=== PATIENT | female | born 1950 | race Caucasian/White ===

== ENCOUNTER → 2019-06-25 18:59 | Outpatient (ROUT) | payer MEDICARE, OTHER, SELFPAY ==
[2019-06-25 19:23] LABS: Aspartate Aminotransferase 31 IU/L (14-36); BUN Creatinine Ratio 18.8 (6-22); Blood Urea Nitrogen 15 mg/dL (7-17); Calcium 10.2 mg/dL (8.4-10.2); Carbon Dioxide 29 mmol/L (22-32); Chloride 99 mmol/L (98-107); Cholesterol 215 mg/dL (140-199); Estimated Glomerular Filt Rate > 60.0 mL/min (>60); Glucose 114 mg/dL (80-110); HDL Cholesterol 93 mg/dL (40-60); HEMOLYSIS < 15 (0-50); LDL Cholesterol Calculated 99 mg/dL (<100); Sodium 140 mmol/L (137-145); Triglycerides 113 mg/dL (35-150)
[2019-06-25 19:51] LABS: TSH w/ Reflex to FT4 0.61 uIU/mL (0.47-4.68)
== END ==
PROVIDERS: Family Provider Internal Medicine; PCP Internal Medicine; Visit Provider Internal Medicine
DX: E78.2 Mixed hyperlipidemia (principal); I10 Essential (primary) hypertension
CPT/HCPCS: 80048; 80061; 84443; 84450

== ENCOUNTER → 2020-07-06 19:15 | Outpatient (ROUT) | payer MEDICARE, OTHER, SELFPAY ==
[2020-07-06 19:58] LABS: Aspartate Aminotransferase 35 IU/L (14-36); Blood Urea Nitrogen 12 mg/dL (7-17); Calcium 9.7 mg/dL (8.4-10.2); Carbon Dioxide 31 mmol/L (22-32); Chloride 99 mmol/L (98-107); Cholesterol 208 mg/dL (140-199); Estimated Glomerular Filt Rate > 60.0 mL/min (>60); Glucose 91 mg/dL (80-110); HDL Cholesterol 79 mg/dL (40-60); HEMOLYSIS < 15 (0-50); LDL Cholesterol Calculated 102 mg/dL (<100); Sodium 137 mmol/L (137-145); Triglycerides 134 mg/dL (35-150)
== END ==
PROVIDERS: Family Provider Internal Medicine; PCP Internal Medicine; Visit Provider Internal Medicine
DX: E78.2 Mixed hyperlipidemia (principal); I10 Essential (primary) hypertension
CPT/HCPCS: 80048; 80061; 84450

== ENCOUNTER → 2021-06-06 10:42 | Outpatient (CLI) | payer MEDICARE, SELFPAY ==
--- NOTE | 2021-06-06 | DI.US.S_ITS ---
PROCEDURE: US PELVIC COMPLETE INDICATIONS: FAMILY HISTORY ENDOMETRIAL CANCER TECHNIQUE: Real-time scanning was performed of the pelvic organs, with image documentation. Additional endovaginal scanning was necessary due to incomplete visualization of the adnexal and endometrial structures by transabdominal scanning. COMPARISON: None. FINDINGS: Uterus: Uterus is normal in size at 6.0 x 3.2 x 4.2 cm. The endometrium measures 3 mm in combined thickness. Scant amount of fluid within the endometrial cavity. Ovaries: Right ovary is not visualized. There is a 3.0 x 2.4 x 2.6 cm left adnexal mass with mild internal vascularity. It appears solid. It is immediately adjacent to the lower uterine segment but appears to move away/separate from the uterus during real-time imaging. Other: No pathologic free abdominal or pelvic fluid. IMPRESSION: 1. Unremarkable appearance of the uterus. 2. A 3.0 x 2.4 x 2.6 cm left adnexal mass seen immediately adjacent to the lower uterine segment. This may represent the left ovary versus a left adnexal mass. Consider further characterization with pelvic MRI . 3. Right ovary not visualized. Dictated by: Isaiah Pratt M.D. on 06/06/2021 at 15:31 Approved by: Isaiah Pratt M.D. on 06/06/2021 at 15:36
== END ==
PROVIDERS: Family Provider Internal Medicine; PCP Internal Medicine; Referring Provider Internal Medicine; Visit Provider Internal Medicine
DX: R19.09 Other intra-abdominal and pelvic swelling, mass and lump (principal); Z80.49 Family history of malignant neoplasm of other genital organs
CPT/HCPCS: 76830; 76856

== ENCOUNTER → 2021-06-21 09:11 | Outpatient (CLI) | payer MEDICARE, SELFPAY ==
--- NOTE | 2021-06-21 | DI.MRI.S_ITS ---
PROCEDURE: MR PELVIS WO/W CON INDICATIONS: Other specified conditions associated with female gynecological organs. Family history of endometrial carcinoma, ultrasound identifies a possible left adnexal pelvic mass. TECHNIQUE: Coronal HASTE, sagittal breath-hold T2 FSE; axial T1 FSE with and without fat saturation through the pelvis. Optional long- and short-axis uterine nonbreath-hold T2 FSE through the uterus. Sagittal or axial dynamic VIBE during administration of contrast. Post-contrast axial or coronal VIBE/2-D FLASH with fat saturation from the iliac crests to the symphysis. Optional diffusion weighted imaging and ADC may be performed. COMPARISON: [facility], , US PELVIC COMPLETE, 06/06/2021, 10:57. FINDINGS: Image quality: Excellent. Uterus: Uterus is normal in size. Endometrium is normal in thickness. Junctional zone is normal in thickness at 12 mm or less. Adnexa: The right ovary is not identified, and was not identified on prior ultrasound scanning. The left ovary is relatively poorly identified as a discrete entity but there does appear to be a left ovarian structure at the broad ligament on the left, within immediate adjacent contiguous low T2 signal rounded mass measuring up to 2.3 x 2.9 by 2.5 cm. This mass has heterogeneous internal content best seen on postcontrast imaging, and the large majority of the mass enhances with several areas of possible cystic degeneration centrally. On the coronal T2 imaging, series 2, this mass appears to have a tissue plane it by peritoneal fat from the left lateral border of the anteverted uterus. The position adjacent to but separate from the uterine border argues strongly against a an exophytic subserosal fibroid as cause of this appearance. Rather, it is in very close proximity to what appears to be the left ovary and likely is ovarian in origin, solid, enhancing, and potentially malignant. Urinary system: Bladder wall is normal in thickness. Distal ureters are non distended. Urethra appears normal in morphology. Nodes and vessels: No pelvic or inguinal adenopathy by size criteria. Iliac vessels are normal in size. Bowel and peritoneum: No pathologic free pelvic fluid. Inferior colon and small bowel loops are normal in caliber. Soft tissues: No inguinal hernias. No findings of pelvic floor incompetence in the absence of provocation. Bones: Marrow demonstrates normal overall signal. IMPRESSION: Recommend gynecological surgical consultation for what appears to be a potentially malignant left ovarian mass at the margin of the broad ligament and separate from the left lateral border of the anteverted uterus. This mass shows heterogeneous internal enhancement, and an apparent tissue plane it from the uterine serosal border. The appearance is not typical of endometrioma. Throughout the remaining visualized peritoneal space no lesion is found. Dictated by: Onesimo Sosa M.D. on 06/21/2021 at 17:09 Approved by: Onesimo Sosa M.D. on 06/21/2021 at 17:23
== END ==
PROVIDERS: Family Provider Internal Medicine; PCP Internal Medicine; Referring Provider Internal Medicine; Visit Provider Internal Medicine
DX: N94.89 Other specified conditions associated with female genital organs and menstrual cycle (principal); Z80.49 Family history of malignant neoplasm of other genital organs
CPT/HCPCS: 72197

== ENCOUNTER → 2022-04-11 15:23 | Outpatient (CLI) | payer MEDICARE, SELFPAY ==
[2022-04-11 18:23] LABS: COVID19 -Nasal RAPID Negative (Negative)
== END ==
PROVIDERS: Family Provider Internal Medicine; PCP Internal Medicine; Visit Provider Surgery
DX: Z20.822 Contact with and (suspected) exposure to COVID-19 (principal); Z01.812 Encounter for preprocedural laboratory examination
CPT/HCPCS: 87635

== ENCOUNTER 2022-04-12 14:07 | Day surgery (SDC) | payer MEDICARE, SELFPAY ==
--- NOTE | 2022-04-12 | PATH_ITS ---
[facility] Accession Number: [id number] . 01 Material submitted: . PART A: cecum - CECAL POLYP PART B: sigmoid colon - SIGMOID POLYP . 01 Clinical history: . COLONOSCOPY ENCOUNTER FOR SCREENING FOR MALIGNANT NEOPLASM . 01 Diagnosis: A. Cecal Polyp: Tubular adenoma. . B. Sigmoid Polyp: Hyperplastic polyp. MRV 04/16/2022 0937 Local . 01 Electronically signed: . Sabra Toscano MD, Pathologist NPI- [id number] . 01 Gross description: . Part A: CECAL POLYP: Received in formalin is 1 fragment(s) of brody, soft tissue measuring 1.2 x 0.4 x 0.2 cm submitted entirely in 1 cassette(s) Part B: SIGMOID POLYP: Received in formalin is 1 fragment(s) of brody, soft tissue measuring 1.0 x 0.4 x 0.3 cm submitted entirely in 1 cassette(s) /BENIGNO 04/13/2022 2210 Local . 01 Pathologist provided ICD-10: Z12.11, K63.5 . 01 CPT . 032741, 990175 Performed at: 01 [facility] [address] [place] [id number] MD Aleksey Wolf MD Phone: [phone]
[2022-04-12 14:38] VITALS: BP 139/71; PULSE 57; RESP 16; TEMP 37; O2SAT 98
[2022-04-12 14:45] VITALS: BMI 23.8
--- NOTE | 2022-04-12 15:52 | PM.HP.1 ---
History of Present Illness History of Present Illness Date Patient Seen: 04/12/22 Time Patient Seen: 15:52 Chief complaint: COLONOSCOPY Narrative: Jyoti a 71-year-old woman who is here for colonoscopy. She believes her last colonoscopy was about 10 years ago and was normal. Patient History Surgical History History of Status post surgery (02/13/10) Family & Social History Family History Mother Hypertension Heart disease Gallstones Father Heart disease Diabetes mellitus Sister Cancer Gallstones Social History: household members spouse Tobacco & Substance use: Smoking Status Never smoker alcohol intake former Substance Use Type does not use Meds Home Medications and Allergies Home Medications Medication Instructions Recorded Confirmed Type rosuvastatin 10 mg tablet (Crestor) 10 mg PO QDAY ##0 08/08/12 04/12/22 History amitriptyline 25 mg tablet 25 mg PO DAILY 07/21/20 04/12/22 History omeprazole 20 mg capsule,delayed 20 mg PO DAILY 07/21/20 04/12/22 History release sodium,potassium,mag sulfates 17.5 See Rx Instructions PO .COMPLEX 03/05/22 Rx gram-3.13 gram-1.6 gram oral soln #354 mL (Suprep Bowel Prep Kit) amlodipine 5 mg tablet 5 mg PO DAILY 04/12/22 04/12/22 History Allergies Allergy/AdvReac Type Severity Reaction Status Date / Time From LIPITOR Allergy Mild HIVES Uncoded 04/12/22 14:55 SULFA Allergy Mild hives Uncoded 04/12/22 14:55 Exam Vital Signs (past 8 hours): - 04/12/22 14:38 Temperature 98.6 F Pulse Rate 57 L Respiratory Rate 16 Blood Pressure 139/71 Pulse Oximetry 98 Oxygen Delivery Method Room Air Oxygen Delivery Method Room Air Const General: healthy appearing Resp Effort & Inspection: normal respiratory effort GI Palpation: soft Assessment & Plan Assessment and plan (1) Colon cancer screening: Status: Acute Plan 71-year-old woman here for colon cancer screening. Reviewed risks and benefits of colonoscopy and she would like to proceed. COVID-19 COVID-19 status: Negative Result date/Date tested (Pos, Neg/Pending): 04/11/22 Time Spent With Patient Critical Care time: I spent a total of [] minutes of critical care time on this patient's care today; this time is exclusive of procedural time.
[2022-04-12] MEDS: fentaNYL 250 MCG/5 ML INJ 175 MCG IV (16:08)
[2022-04-12] MEDS: MIDAZOLAM 5 MG/5 ML VIAL 7 MG IV (16:08)
--- NOTE | 2022-04-12 16:23 | P.OP.COLON_ITS ---
Operative Date/Time/Diagnoses Date of procedure: 04/12/22 Time of procedure: 16:23 Pre-op diagnosis: Colon cancer screening Post-op diagnosis: same Procedure & Clinicians Surgeon: Dion Toscano Procedure Notes Procedure in detail: Surgeon: Dion Toscano MD Procedure: The patient was brought to the endoscopy suite, placed in left lateral decubitus position. The patient was connected to monitoring devices. A time-out was performed. Sedation was administered. Once the patient was adequately sedated, a digital rectal exam was performed and was normal. The sc ope was then inserted and advanced to the cecum where the appendiceal orifice was identified and photographed. The scope was then slowly withdrawn over greater than 6 minutes. The mucosa was thoroughly inspected. There was a 5 mm polyp the cecum removed with cold snare. There was a 5 mm polyp in the sigmoid colon removed with cold snare. The scope was retroflexed in the rectum. No abnormalities were noted. The scope was straightened and removed. The patient was awakened and brought to recovery. Versed: 7 mg Fentanyl: 175 mcg EBL: 5 mL Findings: 5 mm polyp in the cecum and 5 mm polyp in the descending colon Scope withdrawal time: 10 Sedation minutes: 19 Post-procedure Recommendations: Will call with biopsy results Disposition: PACU
[2022-04-12 16:35] VITALS: BP 142/72; PULSE 57; RESP 16; TEMP 36.5; O2SAT 97
== END 2022-04-12 17:02 | disposition home or self-care (01) ==
PROVIDERS: Family Provider Internal Medicine; PCP Internal Medicine; Referring Provider Surgery; Visit Provider Surgery
PROC: 0DJD8ZZ Inspection of Lower Intestinal Tract, Via Natural or Artificial Opening Endoscopic (ICD-10-PCS; CPT 45378; principal; 2022-04-12 15:30)
DX: Z12.11 Encounter for screening for malignant neoplasm of colon (principal); D12.0 Benign neoplasm of cecum
CPT/HCPCS: 45385; 99152; J2250; J3010

== ENCOUNTER → 2022-11-07 10:17 | Outpatient (CLI) | payer MEDICARE, OTHER, SELFPAY ==
[2022-11-07 11:50] LABS: Hematocrit 41.9 % (36-46); Hemoglobin 13.9 g/dL (12.0-16.0); Mean Corpuscular HGB Conc 33.1 % (30-36); Mean Corpuscular Hemoglobin 32.2 PG (26-34); Mean Corpuscular Volume 97.2 fL (80-100); Platelet Count 236 X10^3/uL (150-400); Red Blood Cell Count 4.31 X10^6/uL (4.0-5.2); Red Cell Distribution Width 13.6 % (11.6-14.8); White Blood Cell Count 5.1 X10^3/uL (4.5-11.0)
[2022-11-07 12:21] LABS: Alanine Aminotransferase 25 IU/L (<35); Albumin 4.6 g/dL (3.5-5.0); Alkaline Phosphatase 70 U/L (38-126); Aspartate Aminotransferase 30 IU/L (14-36); BUN Creatinine Ratio 19.1 (6-22); Bilirubin Total 0.6 mg/dL (0.2-1.3); Blood Urea Nitrogen 13 mg/dL (7-17); Calcium 9.5 mg/dL (8.4-10.2); Carbon Dioxide 32 mmol/L (22-32); Chloride 100 mmol/L (98-107); Cholesterol 240 mg/dL (140-199); Estimated Glomerular Filt Rate > 60 mL/min (>60); Globulin 2.3 g/dL (1.7-4.1); Glucose 98 mg/dL (80-110); HDL Cholesterol 77 mg/dL (40-60); HEMOLYSIS < 15 (0-50); LDL Cholesterol Calculated 145 mg/dL (<100); Potassium 4.3 mmol/L (3.4-5.1); Sodium 138 mmol/L (137-145); Total Protein 6.9 g/dL (6.3-8.2); Triglycerides 89 mg/dL (35-150)
[2022-11-07 12:48] LABS: TSH w/ Reflex to FT4 < 0.02 uIU/mL (0.47-4.68)
[2022-11-07 13:45] LABS: Free T4, Direct Thyroxine 0.87 ng/dL (0.78-2.19)
== END ==
PROVIDERS: Family Provider Internal Medicine; PCP Internal Medicine; Referring Provider Internal Medicine; Visit Provider Internal Medicine
DX: E78.2 Mixed hyperlipidemia (principal); I10 Essential (primary) hypertension; K21.9 Gastro-esophageal reflux disease without esophagitis
CPT/HCPCS: 36415; 80053; 80061; 84439; 84443; 85027

== ENCOUNTER → 2023-10-02 11:49 | Outpatient (CLI) | payer MEDICARE, OTHER, SELFPAY ==
[2023-10-02 12:47] LABS: Aspartate Aminotransferase 34 IU/L (14-36); BUN Creatinine Ratio 20.6 (6-22); Blood Urea Nitrogen 13 mg/dL (7-17); Carbon Dioxide 30 mmol/L (22-32); Chloride 101 mmol/L (98-107); Cholesterol 251 mg/dL (140-199); Estimated Glomerular Filt Rate > 60 mL/min (>60); Glucose 105 mg/dL (80-110); HDL Cholesterol 79 mg/dL (40-60); HEMOLYSIS < 15 (0-50); LDL Cholesterol Calculated 153 mg/dL (<100); Sodium 138 mmol/L (137-145); Triglycerides 95 mg/dL (35-150)
== END ==
PROVIDERS: Family Provider Internal Medicine; PCP Internal Medicine; Referring Provider Internal Medicine; Visit Provider Internal Medicine
DX: E78.2 Mixed hyperlipidemia (principal); I10 Essential (primary) hypertension
CPT/HCPCS: 36415; 80048; 80061; 84450